=== PATIENT | female | born 1995 | race Hispanic/Latino ===

== ENCOUNTER 2018-08-25 14:42 | Outpatient (CLI) | payer BC ==
--- NOTE | 2018-08-25 16:06 | ULT ---
VENOUS DOPLER ULTRASOUND OF THE RIGHT LOWER EXTREMITY: History Right lower extremity pain. TECHNIQUE: Sosa scale, color flow, and spectral Doppler imaging of the deep venous systems of the right lower ex tremity were performed. FINDINGS: There is good flow, compression, and augmentation of the right common femoral, femoral, popliteal, po sterior tibial, and greater saphenous veins. IMPRESSION: No evidence of deep vein thrombosis in the right lower extremity. POS: [facility]
== END 2018-08-25 14:43 | disposition home or self-care (01) ==
LOC: SCSULT 14:42
PROVIDERS: ATTEND Family Medicine
DX: M71.9 Bursopathy, unspecified (principal)

== ENCOUNTER 2025-08-13 14:11 | Outpatient (CLI) | payer BC | END 2025-08-13 14:12 | disposition home or self-care (01) | LOC: SCSMRI 14:11 | PROVIDERS: ATTEND Family Medicine Sports Medicine | DX: M54.16 Radiculopathy, lumbar region (principal) | CPT/HCPCS: 72148 ==